=== PATIENT | female | born 1960 | race Two or more races ===

== ENCOUNTER 2021-10-12 19:12 | Emergency (ER) | payer MEDICAID, OTHER ==
[~2021-10-12] VITALS: Ht 152.4 cm; Wt 101.0 kg
[2021-10-12 21:58] LABS: BASOPHILS % 0.3 % (0.0-2.0); EOSINOPHILS % 0.7 % (0.0-5.0); HEMATOCRIT. 44.6 % (36.0-48.0); HEMOGLOBIN. 15.4 g/dL (12.0-16.0); LYMPHOCYTES % 38.4 % (20.0-50.0); MEAN CORPUSCULAR HEMOGLOBIN 31.7 pg (28.0-32.0); MEAN CORPUSCULAR VOLUME 92.1 fL (81.0-99.0); MEAN PLATELET VOLUME 9.4 fl (7.4-10.4); MONOCYTES % 13.5 % (2.0-8.0); NEUTROPHILS % 47.1 % (40.0-76.0); PLATELET 151 x1000/uL (130-400); RED BLOOD CELL COUNT 4.84 mill/uL (4.2-5.4)
[2021-10-12 22:04] LABS: CHLORIDE 107 mEq/L (98-107)
[2021-10-13] MEDS: ASPIRIN 325MG EC TABLET PO SCH ×2 (02:00→02:22)
[2021-10-13 14:30] VITALS: BP 116/83
== END 2021-10-13 15:25 | disposition home or self-care (01) ==
LOC: ER 19:12 → CANBEDREQ 10-13 12:50 → ER 10-13 15:25
DX: U07.1 COVID-19 (principal); Z98.890 Other specified postprocedural states
CPT/HCPCS: 36415; 71045; 80053; 84484; 85025; 87426; 93005; 99285

== ENCOUNTER 2022-07-06 18:28 | Emergency (ER) | payer OTHER ==
[~2022-07-06] VITALS: Ht 154.9 cm; Wt 104.0 kg
[2022-07-06] MEDS ORDERED: ACETAMINOPHEN 500MG TABLET PO ONE (23:30)
[2022-07-07] MEDS ORDERED: NAPR-1176 MT (02:40)
[2022-07-07] MEDS ORDERED: CYCL10TA21 MT (02:40)
[2022-07-07 02:45] VITALS: BP 183/83
[2022-07-07] MEDS ORDERED: KETOROLAC 30MG/ML VIAL IM ONE (02:45)
== END 2022-07-07 03:27 | disposition home or self-care (01) ==
LOC: ER 18:28
DX: M79.662 Pain in left lower leg (principal); M79.661 Pain in right lower leg; Z90.710 Acquired absence of both cervix and uterus
CPT/HCPCS: 93970; 96372; 99284; J1885

== ENCOUNTER 2022-11-13 18:10 | Emergency (ER) | payer MEDICAID, OTHER ==
[~2022-11-13] VITALS: Ht 157.5 cm; Wt 100.0 kg
[~2022-11-13 18:10] MED LIST: CYCL10TA21 MT; NAPR-1176 MT
[2022-11-13 18:19] VITALS: BP 176/92
[2022-11-13] MEDS ORDERED: IBUP-2029 MT (21:08)
== END 2022-11-13 22:39 | disposition home or self-care (01) ==
LOC: ER 18:10
DX: M79.669 Pain in unspecified lower leg (principal); Z90.710 Acquired absence of both cervix and uterus
CPT/HCPCS: 93970; 99284; Z7610

== ENCOUNTER 2023-08-28 20:41 | Inpatient (IN) | payer MEDICAID, OTHER ==
[~2023-08-28] VITALS: Ht 154.9 cm; Wt 64.2 kg
[~2023-08-28 20:41] MED LIST changes: +IBUP-2029 MT
[2023-08-28 23:42] LABS: BASOPHILS % 0.4 % (0.0-2.0); EOSINOPHILS % 2.7 % (0.0-5.0); HEMATOCRIT. 37.6 % (36.0-48.0); HEMOGLOBIN. 12.4 g/dL (12.0-16.0); LYMPHOCYTES % 23.3 % (20.0-50.0); MEAN CORPUSCULAR HEMOGLOBIN 30.6 pg (28.0-32.0); MEAN CORPUSCULAR HGB CONC 33.1 g/dL (31.0-37.0); MEAN CORPUSCULAR VOLUME 92.4 fL (81.0-99.0); MEAN PLATELET VOLUME 8.9 fl (7.4-10.4); MONOCYTES % 8.5 % (2.0-8.0); NEUTROPHILS % 65.1 % (40.0-76.0); PLATELET 222 x1000/uL (130-400); RED BLOOD CELL COUNT 4.07 mill/uL (4.2-5.4); WHITE BLOOD COUNT 7.6 x1000/uL (4.5-11.0)
[2023-08-28 23:50] LABS: D-DIMER 0.53 mg/L FEU (<0.50); INR 0.9
[2023-08-29 00:03] LABS: ALANINE AMINOTRANSFERASE 12 IU/L (10-49); ALBUMIN 4.2 g/dL (3.2-4.8); ASPARTATE AMINOTRANSFERASE 20 IU/L (<34); BILIRUBIN TOTAL 0.6 mg/dL (0.1-1.0); CALCIUM 9.2 mg/dL (8.7-10.4); CARBON DIOXIDE 29 mEq/L (21-32); CHLORIDE 106 mEq/L (98-107); CREATININE 0.7 mg/dL (0.6-1.0); GLUCOSE 123 mg/dL (70-105); POTASSIUM 4.6 mEq/L (3.5-5.1); PROTEIN TOTAL 7.3 g/dL (6.0-8.3); SODIUM 141 mEq/L (136-145); THYROID STIMULATING HORMONE 1.99 uIU/mL (0.55-4.78); TROPONIN I HIGH SENSITIVITY 5 ng/L (3.0-34); UREA NITROGEN BLOOD 12 mg/dL (9-23)
[2023-08-29 00:04] LABS: ETHANOL BLOOD < 10 mg/dL (<10)
[2023-08-29] MEDS ORDERED: ASPIRIN 325MG EC TABLET PO ONE (00:15)
[2023-08-29] MEDS ORDERED: IOHEXOL-350 100 ML BOTTLE ONE (01:10)
[2023-08-29] MEDS ORDERED: ENOXAPARIN 100MG/ML SYR SUBCUT ONE (01:15)
[2023-08-29 05:15] LABS: TROPONIN I HIGH SENSITIVITY 4 ng/L (3.0-34)
[2023-08-29 08:00] VITALS: BP 139/85; PULSE 79; RESP 18; TEMP 98.7
[2023-08-29 08:44] VITALS: BP 139/85; PULSE 79; RESP 18; TEMP 98.7
[2023-08-29] MEDS ORDERED: ACETAMINOPHEN 325MG TABLET PO PRN (09:00)
[2023-08-29] MEDS ORDERED: ONDANSETRON HCL 4MG/2ML INJ IV PRN (09:00)
[2023-08-29 12:00] VITALS: BP 101/64; PULSE 73; RESP 18; TEMP 97.3
[2023-08-29 12:04] LABS: CLARITY URINE CLEAR (CLEAR); COLOR URINE YELLOW (YELLOW); GLUCOSE URINE NEGATIVE (NEGATIVE); KETONES URINE NEGATIVE (NEGATIVE); LEUKOCYTE ESTERASE URINE NEGATIVE (NEGATIVE); NITRITE URINE NEGATIVE (NEGATIVE); OCCULT BLOOD URINE NEGATIVE (NEGATIVE); PH URINE 5.5 (4.5-8.0); PROTEIN URINE NEGATIVE (NEGATIVE); SPECIFIC GRAVITY URINE 1.022 (1.005-1.030); UROBILINOGEN URINE 0.2 E.U./dL (0.2-1.0)
[2023-08-29 15:42] VITALS: BP 101/64; PULSE 73; TEMP 97.7; O2SAT 98
[2023-08-29 16:00] VITALS: BP 112/50; PULSE 74; RESP 18; TEMP 97.4
[2023-08-29 21:50] LABS: *AMPHETAMINES SCREEN URINE NEGATIVE (NEGATIVE); *BARBITURATES SCREEN URINE NEGATIVE (NEGATIVE); *BENZODIAZEPINES SCREEN URINE NEGATIVE (NEGATIVE); *COCAINE SCREEN URINE NEGATIVE (NEGATIVE); CANNABINOID URINE SCREEN NEGATIVE (NEGATIVE); ECSTASY MDMA SCREEN URINE NEGATIVE (NEGATIVE); METHADONE URINE SCREEN Neg (NEGATIVE); OPIATES URINE SCREEN NEGATIVE (NEGATIVE); PHENCYCLIDINE URINE SCREEN NEGATIVE (NEGATIVE)
== END 2023-08-29 17:00 | disposition home or self-care (01) | DRG 207 ==
LOC: ER 20:41 → 7WST 08-29 01:48
PROVIDERS: ADMIT Internal Medicine; ATTEND Internal Medicine
DX: R00.2 Palpitations (principal); R06.02 Shortness of breath
CPT/HCPCS: 36415; 71045; 71275; 80053; 80305; 80320; 81003; 83880; 84443; 84484; 85025; 85379; 93005; 93970; 99285; J1650; Q9967; G0480